=== PATIENT | male | born 2000 | race Caucasian/White ===

== ENCOUNTER 2020-06-18 17:29 | Emergency (ER) | payer MEDICAID ==
[~2020-06-18] VITALS: Ht 177.8 cm; Wt 91.0 kg
[2020-06-18 17:38] VITALS: BP 138/99
== END 2020-06-18 18:15 | disposition left against medical advice (07) ==
LOC: ER 17:29
DX: Z53.21 Procedure and treatment not carried out due to patient leaving prior to being seen by health care provider (principal)